=== PATIENT | male | born 1990 | race Two or more races ===

== ENCOUNTER 2017-09-10 12:55 | Emergency (ER) | payer SELFPAY ==
[~2017-09-10] VITALS: Ht 182.9 cm; Wt 69.1 kg
[2017-09-10] MEDS ORDERED: ONDANSETRON ODT 4 MG PO ONE (14:00)
[2017-09-10 14:28] LABS: BASOPHILS # (AUTO) 0.02 x10^3/uL (0-0.1); BASOPHILS % (AUTO) 0 % (0-1); EOSINOPHILS % (AUTO) 0 % (1-7); LYMPHOCYTES # (AUTO) 0.72 x10^3/uL (1-3.4); LYMPHOCYTES % (AUTO) 7 % (22-44); MD NO; MEAN CORPUSCULAR HEMOGLOBIN 30.1 pg (27.5-34.5); MEAN CORPUSCULAR HGB CONC 33.7 g/dL (33.2-36.2); MEAN CORPUSCULAR VOLUME 89.3 fL (81-97); MEAN PLATELET VOLUME 7.9 fL (7.4-10.4); MONOCYTES # (AUTO) 0.47 x10^3/uL (0.2-0.8); MONOCYTES % (AUTO) 5 % (2-9); NEUTROPHILS # (AUTO) 8.47 x10^3/uL (1.8-6.8); NEUTROPHILS % (AUTO) 88 % (42-75); PLATELET COUNT 304 x10^3/uL (130-400); RED BLOOD COUNT 6.07 x10^6/uL (4.38-5.82); RED CELL DISTRIBUTION WIDTH 13.3 % (9.4-14.8)
[2017-09-10 14:40] LABS: ALANINE AMINOTRANSFERASE 13 U/L (12-78); ALBUMIN 4.9 g/dL (3.4-5.0); ANION GAP 12 mmol/L (5-15); CALCIUM 9.9 mg/dL (8.5-10.1); CHLORIDE 91 mmol/L (98-107); CREATININE 1.21 mg/dL (0.7-1.3)
[2017-09-10 14:43] LABS: ALKALINE PHOSPHATASE 55 U/L (45-117); BILIRUBIN,TOTAL 1.3 mg/dL (0.2-1.0); TOTAL PROTEIN 8.7 g/dL (6.4-8.2)
[2017-09-10 15:38] LABS: CULTURE INDICATED? YES; MICROSCOPIC INDICATED
[2017-09-10] MEDS ORDERED: HALOPERIDOL 5 MG TABLET ONE (16:24)
[2017-09-10] MEDS ORDERED: METOCLOPRAMIDE 5 MG/ML, 2ML ONE ×2 (16:25→17:39)
[2017-09-10] MEDS ORDERED: HALOPERIDOL 5 MG/ML ONE (16:25)
[2017-09-10] MEDS ORDERED: METOCLOPRAMIDE 5 MG/ML, 2ML IVPush ONE ×2 (16:30→18:00)
[2017-09-10] MEDS ORDERED: SODIUM CHLORIDE 0.9% 1,000ML IVBOLUS ONE (16:30)
[2017-09-10] MEDS ORDERED: HALOPERIDOL 5 MG/ML IV ONE ×2 (16:30)
[2017-09-10] MEDS ORDERED: SODIUM CHLORIDE FLUSH 10ML SYR IVF ONE (17:30)
[2017-09-10 18:43] VITALS: BP 141/89
== END 2017-09-10 18:46 | disposition home or self-care (01) ==
LOC: ED 18:10
DX: G43.A1 Cyclical vomiting, in migraine, intractable (principal); R10.13 Epigastric pain; F12.10 Cannabis abuse, uncomplicated
CPT/HCPCS: 36415; 80053; 81001; 83690; 85025; 87086; 93005; 96361; 96374; 96375; 96376; 99285; J1630; J2765; J7030; Q0162